=== PATIENT | male | born 1950 | race Hispanic/Latino ===

== ENCOUNTER 2018-07-10 08:51 | Inpatient (IN) | payer MEDICARE ==
[2018-07-10] MEDS ORDERED: Sodium Chloride 0.9% 1,000 ML IV STA (09:05)
--- NOTE | 2018-07-10 09:12 | ED PDOC ---
HPI: General Adult Time Seen by Provider: 07/10/18 08:58 Chief Complaint (Nursing): Abdominal Pain Chief Complaint (Provider): Jaundice and Loss of appetite History Per: Patient History/Exam Limitations: no limitations Onset/Duration Of Symptoms: Days (x 1 week ) Current Symptoms Are (Timing): Still Present Recently: Treated By A Physician Additional Complaint(s): 67 year old male with a history of diabetes and cancer of the tongue presents to the ED with worsening jaundice and decreased appetite over the last week. Patient noted dark colored urine with normal colored stool. Denies abdominal pain, vomiting, diarrhea and fever. PMD: Dr. Fabian Teran Past Medical History Reviewed: Historical Data, Nursing Documentation, Vital Signs - Medical History PMH: Diabetes, HTN, Hypercholesterolemia, Malignancy (tongue) Denies: Chronic Kidney Disease - Surgical History Surgical History: Tonsillectomy - Family History Family History: States: Unknown Family Hx - Home Medications Home Medications: Ambulatory Orders Medication Instructions Recorded Benazepril HCl [Lotensin] 10 mg PO DAILY 07/10/18 Fenofibrate Nanocrystallized 145 mg PO DAILY 07/10/18 [Fenofibrate] MetFORMIN [glucoPHAGE] 1,000 mg PO BID 07/10/18 Multivit-Min/FA/Vit K/Lycopene 1 tab PO DAILY 07/10/18 [One-A-Day Men's 50 Plus Tablet] QUEtiapine [Seroquel] 100 mg PO HS 07/10/18 Vitamin B Complex [Super B-50 1 cap PO DAILY 07/10/18 Complex] amLODIPine [Norvasc] 5 mg PO DAILY 07/10/18 - Allergies Allergies/Adverse Reactions: Allergies Allergy/AdvReac Type Severity Reaction Status Date / Time Penicillins Allergy ITCHING Verified 07/10/18 09:31 Review of Systems ROS Statement: Except As Marked, All Systems Reviewed And Found Negative Gastrointestinal: Negative for: Nausea, Vomiting, Abdominal Pain, Diarrhea, Melena, Hematochezia Genitourinary Male: Positive for: Other (dark colored urine ) Skin: Positive for: Jaundice (worsening over the last week) Physical Exam - Reviewed Nursing Documentation Reviewed: Yes Vital Signs Reviewed: Yes - Physical Exam Appears: Positive for: Non-toxic, No Acute Distress Head Exam: Positive for: ATRAUMATIC, NORMAL INSPECTION, NORMOCEPHALIC Skin: Positive for: Jaundice. Negative for: Rash Eye Exam: Positive for: PERRL, Scleral icterus Neck: Positive for: Normal, Painless ROM, Supple Cardiovascular/Chest: Positive for: Regular Rate, Rhythm. Negative for: Murmur Respiratory: Positive for: Normal Breath Sounds. Negative for: Respiratory Distress Gastrointestinal/Abdominal: Positive for: Other (questionable enlarged liver two finger breadths below right costal margin). Negative for: Tenderness, Distended Extremity: Positive for: Normal ROM. Negative for: Tenderness, Pedal Edema, Swelling Neurologic/Psych: Positive for: Alert, Oriented (x 3). Negative for: Motor/Sensory Deficits - Laboratory Results Result Diagrams: 07/10/18 09:35 07/10/18 09:35 - ECG ECG Rhythm: Positive for: Sinus Rhythm, Right Bundle Branch Block Rate: 88 Pulse Ox Interpretation: Normal - Radiology X-Ray: Read By Radiologist X-Ray Interpretation: No Acute Disease Medical Decision Making Medical Decision Makin:04 Impression: jaundice and decreased appetite Initial Plan: --EKG --CBC --CMP --Urine dip --Prothrombin time --CXR --NS IV --Abd & Pelvis CT 11:49 CT Abd & Pelvis COMPARISON: 08/11/2015. FINDINGS: LOWER THORAX: The visualized lungs are clear. LIVER: Mild hepatomegaly and fatty liver. Mild intrahepatic biliary ductal dilatation, new since the prior examination. GALLBLADDER AND BILE DUCTS: Well distended. No calcified gallstones, wall thickening or pericholecystic fluid. The common bile duct is normal in caliber. PANCREAS: Normal in size with homogeneous enhancement. No gross lesion or ductal dilatation. SPLEEN: Normal in size and appearance. ADRENALS: No discrete nodule. KIDNEYS AND URETERS: Normal in size with homogeneous enhancement. No hydronephrosis. 3 mm nonobstructing stone in the upper pole of the right kidney. VASCULATURE: No aortic aneurysm. There are aortic atherosclerotic calcifications and mural plaque. BOWEL: Evaluation of the bowel is limited in the absence of oral contrast. There are fluid filled normal caliber small bowel loops. There is fluid in the colon. There is scattered colonic diverticulosis. No CT evidence for acute diverticulitis. APPENDIX: The appendix is not distinctly identified however no inflammatory changes in the right lower quadrant. PERITONEUM: No free fluid. No free air. LYMPH NODES: There are small subcentimeter peripancreatic and retroperitoneal lymph nodes. BLADDER: Well distended and normal in appearance. REPRODUCTIVE: The uterus is normal in size. BONES: No acute fracture. Diffuse bone demineralization and multilevel degenerative changes in the spine. Old superior endplate compression deformity in the L3 vertebral body. OTHER FINDINGS: None. IMPRESSION: Fluid filled small bowel loops and fluid in the confluent may represent nonspecific enterocolitis. No evidence for bowel dilatation or obstruction. Mild dilatation of intrahepatic biliary radicles, new since the prior examination. No definite evidence for choledocholithiasis or periampullary mass. The common bile duct is normal in caliber. --------- -------- Scribe Attestation: Documented by Kristin Terrazas, acting as a scribe for Govind Perrin MD Provider Scribe Attestation: All medical record entries made by the Scribe were at my direction and personally dictated by me. I have reviewed the chart and agree that the record accurately reflects my personal performance of the history, physical exam, medical decision making, and the department course for this patient. I have also personally directed, reviewed, and agree with the discharge instructions and disposition. Disposition - Clinical Impression Clinical Impression: Jaundice, Dehydration - Patient ED Disposition Is Patient to be Admitted: Yes - Disposition Disposition Time: 12:24 Condition: FAIR Forms: [employer] (Lithuanian) - Pt Status Changed To: Hospital Disposition Of: Inpatient - Admit Certification Admit to Inpatient:: After my assessment, the patient will require hospitalization for at least two midnights. This is because of the severity of symptoms shown, intensity of services needed, and/or the medical risk in this patient being treated as an outpatient. - POA Present On Arrival: None
[2018-07-10 09:51] LABS: EOS % 0.8 % (0.0-4.0); HEMOGLOBIN 10.4 g/dL (12.0-18.0); LYMPH # 4.5 K/uL (1.0-4.3); LYMPH % 80.6 % (20.0-40.0); MEAN CELL VOLUME 103.3 fl (80.0-94.0); MEAN CORPUSCULAR HEMOGLOBIN 35.5 pg (27.0-31.0); MEAN CORPUSCULAR HGB CONC 34.3 g/dL (33.0-37.0); MEAN PLATELET VOLUME 8.3 fl (7.2-11.7); MONO # 0.4 K/uL (0.0-0.8); NEUT # 0.6 K/uL (1.8-7.0); NEUT % 11.6 % (50.0-75.0); NRBC % 0.1 % (0.0-0.0); PLATELET COUNT 423 K/uL (130-400); RBC 2.93 Mil/uL (4.40-5.90); RED CELL DISTRIBUTION WIDTH 14.1 % (11.5-14.5); WHITE BLOOD COUNT 5.5 K/uL (4.8-10.8)
[2018-07-10 09:59] LABS: INR 1.3; PROTHROMBIN TIME 14.4 Seconds (9.8-13.1)
[2018-07-10 10:11] LABS: ALBUMIN 4.8 g/dL (3.5-5.0); BLOOD UREA NITROGEN 16 mg/dl (9-20); CALCIUM 10.3 mg/dL (8.4-10.2); GFR NON-AFRICAN AMERICAN > 60
[2018-07-10 10:17] LABS: ALT/SGPT 86 U/L (21-72); AST/SGOT 137 U/L (17-59)
[2018-07-10] MEDS ORDERED: Iohexol 300 100 ML IJ ONE (10:25)
[2018-07-10] MEDS ORDERED: Sodium Chloride 0.9% 50 ML IV ONE ×2 (10:25→13:17)
--- NOTE | 2018-07-10 10:33 | RAD ---
Date of service: 07/10/2018 HISTORY: Shortness of breath COMPARISON: 04/26/2015 TECHNIQUE: Chest PA and lateral FINDINGS: LINES AND TUBES: None. LUNG AND PLEURA: The lungs are well inflated and clear. No pleural effusion or pneumothorax. HEART AND MEDIASTINUM: The heart is not enlarged. No aortic atherosclerotic calcification present. The hilar and mediastinal contours are within normal limits. SKELETAL STRUCTURES: The bony structures are within normal limits for the patient's age. VISUALIZED UPPER ABDOMEN: Normal. OTHER FINDINGS: None. IMPRESSION: No active pulmonary disease.
--- NOTE | 2018-07-10 11:52 | CT ---
Date of service: 07/10/2018 PROCEDURE: CT Abdomen and Pelvis with contrast HISTORY: Abdominal pain COMPARISON: 08/11/2015. TECHNIQUE: CT scan of the abdomen and pelvis was performed after administration of intravenous contrast. Oral contrast was not administered. Coronal and sagittal reformatted images were obtained. Contrast dose: Radiation dose: Total exam DLP = 562.82 mGy-cm. This CT exam was performed using one or more of the following dose reduction techniques: Automated exposure control, adjustment of the mA and/or kV according to patient size, and/or use of iterative reconstruction technique. FINDINGS: LOWER THORAX: The visualized lungs are clear. LIVER: Mild hepatomegaly and fatty liver. Mild intrahepatic biliary ductal dilatation, new since the prior examination. GALLBLADDER AND BILE DUCTS: Well distended. No calcified gallstones, wall thickening or pericholecystic fluid. The common bile duct is normal in caliber. PANCREAS: Normal in size with homogeneous enhancement. No gross lesion or ductal dilatation. SPLEEN: Normal in size and appearance. ADRENALS: No discrete nodule. KIDNEYS AND URETERS: Normal in size with homogeneous enhancement. No hydronephrosis. 3 mm nonobstructing stone in the upper pole of the right kidney. VASCULATURE: No aortic aneurysm. There are aortic atherosclerotic calcifications and mural plaque. BOWEL: Evaluation of the bowel is limited in the absence of oral contrast. There are fluid filled normal caliber small bowel loops. There is fluid in the colon. There is scattered colonic diverticulosis. No CT evidence for acute diverticulitis. APPENDIX: The appendix is not distinctly identified however no inflammatory changes in the right lower quadrant. PERITONEUM: No free fluid. No free air. LYMPH NODES: There are small subcentimeter peripancreatic and retroperitoneal lymph nodes. BLADDER: Well distended and normal in appearance. REPRODUCTIVE: The uterus is normal in size. BONES: No acute fracture. Diffuse bone demineralization and multilevel degenerative changes in the spine. Old superior endplate compression deformity in the L3 vertebral body. OTHER FINDINGS: None. IMPRESSION: Fluid filled small bowel loops and fluid in the confluent may represent nonspecific enterocolitis. No evidence for bowel dilatation or obstruction. Mild dilatation of intrahepatic biliary radicles, new since the prior examination. No definite evidence for choledocholithiasis or periampullary mass. The common bile duct is normal in caliber.
[2018-07-10 13:17] LABS: EOSINOPHIL 2 % (0-7); LYMPHOCYTE 33 % (20-50); MONOCYTE 13 % (0-10); NEUTROPHIL 52 % (42-75); PLATELET ESTIMATE INCREASED (NORMAL)
[2018-07-10] MEDS ORDERED: Gadodiamide 287 MG/ML VIAL (15ML) IV ONE (13:17)
[2018-07-10 13:19] LABS: HYPOCHROMIC SLIGHT; TARGET CELLS MODERATE
[2018-07-10 13:20] LABS: GIANT PLATELETS PRESENT; LARGE PLATELETS PRESENT
[2018-07-10 13:25] LABS: TOTAL CELLS COUNTED 100
[2018-07-10 13:44] LABS: BILIRUBIN,DIRECT 9.7 mg/ml (0.0-0.4)
[2018-07-10 13:50] LABS: BENZODIAZEPINES, UR NEGATIVE (NEGATIVE); OPIATES, UR NEGATIVE (NEGATIVE); PHENCYCLIDINE, UR NEGATIVE (NEGATIVE)
[2018-07-10 13:53] LABS: URINE BILIRUBIN NEGATIVE (NEGATIVE); URINE BLOOD NEGATIVE (NEGATIVE); URINE GLUCOSE (UA) NEG (Normal); URINE LEUKOCYTE ESTERASE NEG Leu/uL (Negative); URINE PROTEIN NEGATIVE (NEGATIVE); URINE UROBILINOGEN 0.2-1.0 mg/dL (0.2-1.0)
[2018-07-10 13:54] LABS: URINE COLOR YELLOW (YELLOW)
[2018-07-10 13:55] LABS: URINE CLARITY SLIGHT-CLOUDY (Clear)
[2018-07-10 14:01] LABS: BARBITURATES, UR NEGATIVE (NEGATIVE)
--- NOTE | 2018-07-10 14:15 | CP.PCM.HP ---
<Reba Miles - Last Filed: 07/10/18 16:55> History of Present Illness - History of Present Illness History of Present Illness: 67 yo M with PMH hypertension, diabetes, oral/tongue cancer, hyperlipidemia, alcohol abuse admitted due to marked jaundice and elevation in bilirubin. Pt was seen by his PMD Dr. Teran on Saturday of this week (2 days ago), and as per patient, was noted to be yellow in color. Pt states that prior to his PMD pointing it out to him, he did not notice change in his skin color. Pt also states he was seen by his ENT 1 week prior to his apt with PMD, and was not told that he looked yellow. Currently, he admits to having low appetite, but denies chest pain, abdominal pain/fullness or other discomfort. Pt admits to drinking 3-4 times a week for many years, and daily for the past 4- 6 months. He drinks pint of [employer] whiskey and a "couple of beers" night ly. He is a past smoker, smoked since age 21, about 1ppd for most of those years, and up to 2 ppd for the last 2 years of smoking. He quit on December 08, 2016, when he was diagnosed with tongue cancer, and underwent local resection of the lesion in March 2017. Med hx: hypertension, diabetes, tongue cancer, alcohol abuse Surg hx: tongue lesion resection 03/2017, left elbow surgery for trapped nerve, tonsillectomy in childhood Social hx: former heavy smoker (1-2 ppd) for 40+ years since age 21, quit 1.5 yrs ago; chronic alcohol use, pint of whiskey and few beers 3-4x a week for many years, and daily for past 4-6 months Fam hx: father of lung ca (smoked fo 40 yrs, quit age 61, age 88) Allergies: penicillin Med: med rec reviewed, home meds: amlodipine, benazepril, fenofibrate, me tformin, seroquel, multivitamin, vitamin B complex; of note, as per pt he was taking atorvastatin until about 2 months ago when he was switched to fenofibrate ROS: 10+ point ROS reviewed, negative except for decreased appetite, 30 lb weight loss since surgery, yellowing of skin. In ED: Vitals: Afebrile 97.9, BP 146/81, HR 91, O2 sat on room air 99 Labs: CMP: total bili 10.7, direct bili 9.7; transaminitis AST/ALT 137/86; CBC no leukocytosis, macrocytic anemia Hgb 104, MCV 103.3, elevated platelets 423. Abd CT: nonspecific enterocolitis; no evidence of obstruction. Mild dilatation of intrahepatic biliary radicles, new since prior examination. No definite evidence for choledocholithiasis or periampullary mass. Common bile duct normal in caliber. MRCP ordered Present on Admission - Present on Admission Any Indicators Present on Admission: No Review of Systems - Review of Systems All systems: reviewed and no additional remarkable complaints except (as per HPI) Past Patient History - Infectious Disease Hx of Infectious Diseases: None - Past Social History Smoking Status: Former Smoker Alcohol: > 2 Drinks/Day - CARDIAC Hx Cardiac Disorders: Yes Hx Hypercholesterolemia: Yes Hx Hypertension: Yes - PULMONARY Hx Respiratory Disorders: No - NEUROLOGICAL Hx Neurological Disorder: No - HEENT Hx HEENT Problems: No - RENAL Hx Chronic Kidney Disease: No - ENDOCRINE/METABOLIC Hx Endocrine Disorders: Yes Hx Diabetes Mellitus Type 2: Yes - HEMATOLOGICAL/ONCOLOGICAL Hx Blood Disorders: No - INTEGUMENTARY Hx Dermatological Problems: No - MUSCULOSKELETAL/RHEUMATOLOGICAL Hx Musculoskeletal Disorders: No - GASTROINTESTINAL Hx Gastrointestinal Disorders: No - GENITOURINARY/GYNECOLOGICAL Hx Genitourinary Disorders: No - SURGICAL HISTORY Hx Surgeries: Yes Hx Tonsillectomy: Yes Other/Comment: tongue cancer lesion resection, left upper extremity/elbow nerve entrapment release - ANESTHESIA Hx Anesthesia: No Meds Allergies/Adverse Reactions: Allergies Allergy/AdvReac Type Severity Reaction Status Date / Time Penicillins Allergy ITCHING Verified 07/10/18 09:31 Physical Exam - Constitutional Appears: No Acute Distress, Other (jaundiced) - Head Exam Head Exam: ATRAUMATIC, NORMOCEPHALIC. absent: NORMAL INSPECTION Additional comments: jaudiced skin and sclera - Eye Exam Eye Exam: EOMI, Scleral icterus. absent: Normal appearance - ENT Exam ENT Exam: Mucous Membranes Moist Additional comments: tongue uneven, s/p resection of cancerous lesion in 2017 - Neck Exam Neck exam: Positive for: Full Rom - Respiratory Exam Respiratory Exam: Clear to Auscultation Bilateral, NORMAL BREATHING PATTERN - Cardiovascular Exam Cardiovascular Exam: REGULAR RHYTHM, +S1, +S2 - GI/Abdominal Exam GI & Abdominal Exam: Soft. absent: Tenderness Additional comments: markedly yellow skin - Extremities Exam Extremities exam: Negative for: calf tenderness Additional comments: no calf swelling slight yellowing to skin in extremities - Neurological Exam Neurological exam: Alert, Oriented x3 - Skin Skin Exam: Dry Additional comments: marked jaundice, most concentrated in face, neck and trunk, less marked in extremities Results - Vital Signs Recent Vital Signs: Last Vital Signs Temp 97.9 F 07/10/18 09:10 Pulse 88 07/10/18 12:24 Resp BP 146/81 07/10/18 09:10 Pulse Ox 99 07/10/18 09:10 - Labs Result Diagrams: 07/10/18 09:35 07/10/18 09:35 Labs: Laboratory Results - last 24 hr 07/10/18 07/10/18 07/10/18 09:35 09:35 09:35 WBC 5.5 RBC 2.93 L Hgb 10.4 L D Hct 30.2 L MCV 103.3 H MCH 35.5 H MCHC 34.3 RDW 14.1 Plt Count 423 H D MPV 8.3 Neut % (Auto) 11.6 L Lymph % (Auto) 80.6 H [place] % (Auto) 7.0 Eos % (Auto) 0.8 Baso % (Auto) 0.0 Neut # (Auto) 0.6 L Lymph # (Auto) 4.5 H [place] # (Auto) 0.4 Eos # (Auto) 0.0 Baso # (Auto) 0.0 Neutrophils % (Manual) 52 Lymphocytes % (Manual) 33 Monocytes % (Manual) 13 H Eosinophils % (Manual) 2 Platelet Estimate Increased H Large Platelets Present Giant Platelets Present Hypochromasia (manual) Slight Macrocytosis (manual) Slight Target Cells Moderate PT 14.4 H INR 1.3 Sodium 132 Potassium 4.8 Chloride 98 Carbon Dioxide 18 L Anion Gap 21 H BUN 16 Creatinine 1.2 Est GFR ( Amer) > 60 Est GFR (Non-Af Amer) > 60 Random Glucose 89 Calcium 10.3 H Total Bilirubin 10.7 H AST 137 H ALT 86 H D Alkaline Phosphatase 102 Total Protein 9.5 H Albumin 4.8 Globulin 4.7 H Albumin/Globulin Ratio 1.0 Assessment & Plan - Assessment and Plan (Free Text) Assessment: 67 yo M with hx HTN, DM2, oral cancer s/p resection of tongue lesion, alcohol abuse admitted due to marked jaundice and elevation in bilirubin. Plan: Jaundice, Hyperbilirubinemia, Transaminitis - Total bili - Hepatitis panel - GI consult - Dr. Stewart, pending recs - MRCP - CMP/CBC in am Anemia - Macrocytic, MCV 103 - Check B12, folate Alcohol Abuse - [facility] protocol - Banana bag Diabetes Mellitus, Type 2 - Appears well controlled - Hold home meds due to possible hepatotoxicity - Accucheks and insulin coverage scale Hypertension - Hold home meds due to possible hepatotoxicity - Start hydralazine Dyslipidemia - Hold fenofibrate due to possible hepatotoxicity Diet - Heart Healthy Prophylactic measures - GI: protonix daily - DVT: SCD for now <Eduard Jalloh D - Last Filed: 07/11/18 10:49> Results - Vital Signs Recent Vital Signs: Last Vital Signs Temp 98.0 F 07/11/18 08:17 Pulse 58 L 07/11/18 08:38 Resp 19 07/11/18 08:17 BP 146/87 07/11/18 08:38 Pulse Ox 97 07/11/18 08:17 - Labs Result Diagrams: 07/11/18 06:25 07/11/18 06:25 Labs: Laboratory Results - last 24 hr 07/10/18 07/10/18 07/10/18 09:35 13:20 13:20 WBC RBC Hgb Hct MCV MCH MCHC RDW Plt Count MPV Neut % (Auto) Lymph % (Auto) [place] % (Auto) Eos % (Auto) Baso % (Auto) Neut # (Auto) Lymph # (Auto) [place] # (Auto) Eos # (Auto) Baso # (Auto) Neutrophils % (Manual) 52 Lymphocytes % (Manual) 33 Monocytes % (Manual) 13 H Eosinophils % (Manual) 2 Platelet Estimate Increased H Large Platelets Present Giant Platelets Present Hypochromasia (manual) Slight Macrocytosis (manual) Slight Target Cells Moderate Sodium Potassium Chloride Carbon Dioxide Anion Gap BUN Creatinine Est GFR ( Amer) Est GFR (Non-Af Amer) POC Glucose (mg/dL) Random Glucose Calcium Total Bilirubin 10.7 H Direct Bilirubin 9.7 H AST ALT Alkaline Phosphatase Total Protein Albumin Globulin Albumin/Globulin Ratio Vitamin B12 Urine Color Urine Clarity Urine pH Ur Specific [place] Urine Protein Urine Glucose (UA) Urine Ketones Urine Blood Urine Nitrate Urine Bilirubin Urine Urobilinogen Ur Leukocyte Esterase Urine RBC (Auto) Urine Microscopic WBC Urine Opiates Screen Negative Urine Methadone Screen Negative Ur Barbiturates Screen Negative Ur Phencyclidine Scrn Negative Ur Amphetamines Screen Negative U Benzodiazepines Scrn Negative U Oth Cocaine Metabols Negative U Cannabinoids Screen Negative Alcohol, Quantitative < 10 07/10/18 07/10/18 07/10/18 13:20 16:53 17:40 WBC RBC Hgb Hct MCV MCH MCHC RDW Plt Count MPV Neut % (Auto) Lymph % (Auto) [place] % (Auto) Eos % (Auto) Baso % (Auto) Neut # (Auto) Lymph # (Auto) [place] # (Auto) Eos # (Auto) Baso # (Auto) Neutrophils % (Manual) Lymphocytes % (Manual) Monocytes % (Manual) Eosinophils % (Manual) Platelet Estimate Large Platelets Giant Platelets Hypochromasia (manual) Macrocytosis (manual) Target Cells Sodium Potassium Chloride Carbon Dioxide Anion Gap BUN Creatinine Est GFR ( Amer) Est GFR (Non-Af Amer) POC Glucose (mg/dL) 97 Random Glucose Calcium Total Bilirubin Direct Bilirubin AST ALT Alkaline Phosphatase Total Protein Albumin Globulin Albumin/Globulin Ratio Vitamin B12 419 Urine Color Yellow Urine Clarity Slight-cloudy Urine pH 7.0 Ur Specific [place] 1.014 Urine Protein Negative Urine Glucose (UA) Neg Urine Ketones Negative Urine Blood Negative Urine Nitrate Negative Urine Bilirubin Negative Urine Urobilinogen 0.2-1.0 Ur Leukocyte Esterase Neg Urine RBC (Auto) 5 H Urine Microscopic WBC 2 Urine Opiates Screen Urine Methadone Screen Ur Barbiturates Screen Ur Phencyclidine Scrn Ur Amphetamines Screen U Benzodiazepines Scrn U Oth Cocaine Metabols U Cannabinoids Screen Alcohol, Quantitative 07/10/18 07/11/18 07/11/18 21:15 04:52 06:25 WBC 4.7 L RBC 2.77 L Hgb 9.8 L Hct 28.7 L MCV 103.5 H MCH 35.3 H MCHC 34.1 RDW 14.4 Plt Count 354 MPV 7.5 Neut % (Auto) 17.0 L Lymph % (Auto) 65.1 H [place] % (Auto) 17.0 H Eos % (Auto) 0.9 Baso % (Auto) 0.0 Neut # (Auto) 0.8 L Lymph # (Auto) 3.1 [place] # (Auto) 0.8 Eos # (Auto) 0.0 Baso # (Auto) 0.0 Neutrophils % (Manual) Lymphocytes % (Manual) Monocytes % (Manual) Eosinophils % (Manual) Platelet Estimate Large Platelets Giant Platelets Hypochromasia (manual) Macrocytosis (manual) Target Cells Sodium Potassium Chloride Carbon Dioxide Anion Gap BUN Creatinine Est GFR ( Amer) Est GFR (Non-Af Amer) POC Glucose (mg/dL) 184 H 105 Random Glucose Calcium Total Bilirubin Direct Bilirubin AST ALT Alkaline Phosphatase Total Protein Albumin Globulin Albumin/Globulin Ratio Vitamin B12 Urine Color Urine Clarity Urine pH Ur Specific [place] Urine Protein Urine Glucose (UA) Urine Ketones Urine Blood Urine Nitrate Urine Bilirubin Urine Urobilinogen Ur Leukocyte Esterase Urine RBC (Auto) Urine Microscopic WBC Urine Opiates Screen Urine Methadone Screen Ur Barbiturates Screen Ur Phencyclidine Scrn Ur Amphetamines Screen U Benzodiazepines Scrn U Oth Cocaine Metabols U Cannabinoids Screen Alcohol, Quantitative 07/11/18 06:25 WBC RBC Hgb Hct MCV MCH MCHC RDW Plt Count MPV Neut % (Auto) Lymph % (Auto) [place] % (Auto) Eos % (Auto) Baso % (Auto) Neut # (Auto) Lymph # (Auto) [place] # (Auto) Eos # (Auto) Baso # (Auto) Neutrophils % (Manual) Lymphocytes % (Manual) Monocytes % (Manual) Eosinophils % (Manual) Platelet Estimate Large Platelets Giant Platelets Hypochromasia (manual) Macrocytosis (manual) Target Cells Sodium 134 Potassium 4.2 Chloride 102 Carbon Dioxide 20 L Anion Gap 16 BUN 13 Creatinine 1.0 Est GFR ( Amer) > 60 Est GFR (Non-Af Amer) > 60 POC Glucose (mg/dL) Random Glucose 104 Calcium 9.9 Total Bilirubin 10.6 H Direct Bilirubin 9.3 H AST 120 H ALT 77 H Alkaline Phosphatase 84 Total Protein 8.3 H Albumin 4.3 Globulin 4.0 H Albumin/Globulin Ratio 1.1 Vitamin B12 Urine Color Urine Clarity Urine pH Ur Specific [place] Urine Protein Urine Glucose (UA) Urine Ketones Urine Blood Urine Nitrate Urine Bilirubin Urine Urobilinogen Ur Leukocyte Esterase Urine RBC (Auto) Urine Microscopic WBC Urine Opiates Screen Urine Methadone Screen Ur Barbiturates Screen Ur Phencyclidine Scrn Ur Amphetamines Screen U Benzodiazepines Scrn U Oth Cocaine Metabols U Cannabinoids Screen Alcohol, Quantitative Attending/Attestation - Attestation I have personally seen and examined this patient.: Yes I have fully participated in the care of the patient.: Yes I have reviewed all pertinent clinical information: Yes Notes (Text): 07/11/18 10:49 Patient seen and examined with resident. Case discussed and agreed with assessment and plan of management.
--- NOTE | 2018-07-10 15:33 | MRI ---
MRI abdomen without/with IV contrast MRCP Indication: Hyperbilirubinemia Technique: Multiplanar, multi sequence magnetic resonance images of the abdomen were obtained without and with the administration of intravenous gadolinium using a multi phase abdomen protocol. Rotating maximum intensity projection images of the biliary system were generated. A total of 1106 images submitted for review Comparison: CT abdomen and pelvis with IV contrast Findings: The gallbladder appears unremarkable. Intrahepatic biliary ductal dilatation. The common bile duct appears within normal limits in caliber and tapers distally. The pancreatic duct appears within normal limits of caliber. No filling defects are seen in the common bile duct or pancreatic duct. 5 mm pancreatic body and 3 mm pancreatic tail punctate T2 hyperintense foci. No focal hepatic mass appreciated. The spleen and adrenal glands appear unremarkable. The kidneys enhance symmetrically. No hydronephrosis or obstructing calculus identified. 13 mm clair hepatis lymph node Limited views of the inferior thorax appear unremarkable. Impression: Mild to moderate intrahepatic biliary ductal dilatation. This finding is new since 08/11/15. 13 mm lymph node at the clair hepatis. Additional prominent sub cm mesenteric and retroperitoneal lymph nodes of uncertain significance. Correlate clinically. Sub cm pancreatic body and tail T2 hyperintense foci, likely tiny cysts.
[2018-07-10] MEDS: Insulin Lispro (humaLOG) 100 Units/ml Inj SC SCH ×2 (16:54→22:00)
[2018-07-10] MEDS: Multivitamin (MVI) 10 ML, Thiamine 100 MG, Folic Acid 1 MG in Dextrose 5%/0.45% NS 1,00... IV ONE ×2 (18:30→21:06)
--- NOTE | 2018-07-10 19:34 | CARD ---
APPROVED REPORT Date of service: 07/10/2018 EKG Measurement Heart [id number] <Conclusion> Normal sinus rhythm Possible Left atrial enlargement Right bundle branch block Abnormal ECG
[2018-07-11 06:39] LABS: EOS % 0.9 % (0.0-4.0); HEMOGLOBIN 9.8 g/dL (12.0-18.0); LYMPH # 3.1 K/uL (1.0-4.3); LYMPH % 65.1 % (20.0-40.0); MEAN CELL VOLUME 103.5 fl (80.0-94.0); MEAN CORPUSCULAR HEMOGLOBIN 35.3 pg (27.0-31.0); MEAN CORPUSCULAR HGB CONC 34.1 g/dL (33.0-37.0); MEAN PLATELET VOLUME 7.5 fl (7.2-11.7); MONO # 0.8 K/uL (0.0-0.8); NEUT # 0.8 K/uL (1.8-7.0); NRBC % 0.1 % (0.0-0.0); RBC 2.77 Mil/uL (4.40-5.90); RED CELL DISTRIBUTION WIDTH 14.4 % (11.5-14.5); WHITE BLOOD COUNT 4.7 K/uL (4.8-10.8)
[2018-07-11 06:50] LABS: BLOOD UREA NITROGEN 13 mg/dl (9-20); CALCIUM 9.9 mg/dL (8.4-10.2); GFR NON-AFRICAN AMERICAN > 60
[2018-07-11] MEDS: Insulin Lispro (humaLOG) 100 Units/ml Inj SC SCH ×2 (07:39→12:14)
[2018-07-11 08:36] LABS: ALB/GLOB RATIO 1.1 (1.0-2.1); ALBUMIN 4.3 g/dL (3.5-5.0); ALT/SGPT 77 U/L (21-72); AST/SGOT 120 U/L (17-59); BILIRUBIN,DIRECT 9.3 mg/ml (0.0-0.4)
[2018-07-11] MEDS ORDERED: Pantoprazole 40 mg EC Tab PO SCH (09:00)
--- NOTE | 2018-07-11 11:02 | CP.PCM.PN ---
<Enrico Dean - Last Filed: 07/11/18 14:38> Subjective - Date & Time of Evaluation Date of Evaluation: 07/11/18 Time of Evaluation: 07:10 - Subjective Subjective: Patient is seen and examined at bedside. No acute event overnight. Patient state he could not sleep yesterday due to noise. otherwise patient had no complain, he eat, had BM, void, he denies any pain. Patient denies Chest pain, sob, abdominal pain, diarrhea, constipation, dysuria or polyuria. Objective - Vital Signs/Intake and Output Vital Signs (last 24 hours): Temp Pulse Resp BP Pulse Ox 98.0 F 58 L 19 146/87 97 07/11/18 08:17 07/11/18 08:38 07/11/18 08:17 07/11/18 08:38 07/11/18 08:17 - Medications Medications: Current Medications Docusate Sodium (Colace) 100 mg PO BID [facility] Last Admin: 07/11/18 08:41 Dose: Not Given Hydralazine HCl (Apresoline) 10 mg PO TID [facility] Last Admin: 07/11/18 08:38 Dose: 10 mg Insulin Human Lispro (Humalog) 0 units SC ACHS [facility]; Protocol Last Admin: 07/11/18 07:39 Dose: Not Given Pantoprazole Sodium (Protonix Ec Tab) 40 mg PO DAILY [facility] Last Admin: 07/11/18 08:41 Dose: 40 mg - Labs Labs: 07/11/18 06:25 07/11/18 06:25 PT 14.4 Seconds (9.8-13.1) H 07/10/18 09:35 INR 1.3 07/10/18 09:35 - Constitutional Appears: Well, Non-toxic, No Acute Distress - Head Exam Head Exam: ATRAUMATIC, NORMAL INSPECTION, NORMOCEPHALIC - Eye Exam Eye Exam: EOMI, Normal appearance, PERRL, Scleral icterus Pupil Exam: NORMAL ACCOMODATION, PERRL - ENT Exam ENT Exam: Mucous Membranes Moist, Normal Exam - Neck Exam Neck Exam: Full ROM, Normal Inspection - Respiratory Exam Respiratory Exam: Clear to Ausculation Bilateral, NORMAL BREATHING PATTERN - Cardiovascular Exam Cardiovascular Exam: REGULAR RHYTHM, +S1, +S2 - GI/Abdominal Exam GI & Abdominal Exam: Soft, Normal Bowel Sounds - Extremities Exam Extremities Exam: Full ROM, Normal Capillary Refill, Normal Inspection - Back Exam Back Exam: NORMAL INSPECTION - Neurological Exam Neurological Exam: Alert, Awake, Oriented x3 - Psychiatric Exam Psychiatric exam: Normal Affect, Normal Mood - Skin Skin Exam: Dry, Warm Additional comments: Jaundice and sclera icterus noted. 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 Jaundice, Hyperbilirubinemia, Transaminitis - Total bili 10.7->10.6 -Direct bili 9.7-? 9.3 - ASt/ALT: 120/77 - MRCP: MILD to moderate intrahepatic biliary ductal dilation. 13 mm lymph node at the portal hepatis. Additional prominent sub cm mesenteric and retroperitonea l lymph nodes of uncertain significance. -Hepatitis panel negative for Hep A, B and C - GI consult - Dr. Stewart: Alcohol vs Medication induced. MRI with contrast, consider Liver bx if not resolved. F/U MRI with Contrast Anemia - Macrocytic, MCV 103 - Folate: pending -B12 419 Alcohol Abuse - [facility] protocol - Banana bag Diabetes Mellitus, Type 2 - Well controlled - Hold home meds due to possible hepatotoxicity - Accucheks and insulin coverage scale Hypertension - Hold home meds due to possible hepatotoxicity - Continue hydralazine Dyslipidemia - Hold fenofibrate due to possible hepatotoxicity Diet - Heart Healthy Prophylactic measures - GI: protonix daily - DVT: SCD for now <Lisa Riley - Last Filed: 07/12/18 10:00> Objective - Vital Signs/Intake and Output Vital Signs (last 24 hours): Temp Pulse Resp BP Pulse Ox 98.5 F 52 L 18 154/78 H 100 07/11/18 16:09 07/11/18 16:09 07/11/18 16:09 07/11/18 16:09 07/11/18 16:09 - Labs Labs: 07/11/18 06:25 07/11/18 06:25 PT 14.4 Seconds (9.8-13.1) H 07/10/18 09:35 INR 1.3 07/10/18 09:35 Attending/Attestation - Attestation I have personally seen and examined this patient.: Yes I have fully participated in the care of the patient.: Yes I have reviewed all pertinent clinical information, including history, physical exam and plan: Yes Notes (Text): 07/12/18 10:00 Seen, examined, and discussed with resident. Agree with findings and plan as above.
[2018-07-11 12:09] LABS: HEPATITIS B SURFACE AG Negative (NEGATIVE)
[2018-07-11 12:15] LABS: HEPATITIS A IGM NEGATIVE (NEGATIVE); HEPATITIS B CORE AB NEGATIVE (NEGATIVE)
--- NOTE | 2018-07-11 12:17 | CP.PCM.PN ---
Subjective - Date & Time of Evaluation Date of Evaluation: 07/11/18 Time of Evaluation: 12:16 - Subjective Subjective: no overnight events Objective - Vital Signs/Intake and Output Vital Signs (last 24 hours): Temp Pulse Resp BP Pulse Ox 98.0 F 58 L 19 146/87 97 07/11/18 08:17 07/11/18 08:38 07/11/18 08:17 07/11/18 08:38 07/11/18 08:17 - Medications Medications: Current Medications Docusate Sodium (Colace) 100 mg PO BID [facility] Last Admin: 07/11/18 08:41 Dose: Not Given Hydralazine HCl (Apresoline) 10 mg PO TID [facility] Last Admin: 07/11/18 08:38 Dose: 10 mg Insulin Human Lispro (Humalog) 0 units SC ACHS [facility]; Protocol Last Admin: 07/11/18 07:39 Dose: Not Given Pantoprazole Sodium (Protonix Ec Tab) 40 mg PO DAILY [facility] Last Admin: 07/11/18 08:41 Dose: 40 mg - Labs Labs: 07/11/18 06:25 07/11/18 06:25 PT 14.4 Seconds (9.8-13.1) H 07/10/18 09:35 INR 1.3 07/10/18 09:35 - Eye Exam Eye Exam: Scleral icterus - Neck Exam Neck Exam: Normal Inspection - Respiratory Exam Respiratory Exam: NORMAL BREATHING PATTERN - Cardiovascular Exam Cardiovascular Exam: REGULAR RHYTHM - GI/Abdominal Exam GI & Abdominal Exam: Soft, Normal Bowel Sounds Assessment and Plan - Assessment and Plan (Free Text) Assessment: 67 yo male with icterus contrast MRI pending etiology etoh versus med induced (fenofibrate) consider liver bx if no improvement
[2018-07-11 12:27] LABS: HEPATITIS C ANTIBODY NEGATIVE (NEGATIVE)
[2018-07-11 12:44] LABS: FOLATE > 20.0 ng/mL
[2018-07-11 16:10] VITALS: BP 154/78; PULSE 52; RESP 18; TEMP 98.5; O2SAT 100
--- NOTE | 2018-07-11 18:18 | CP.PCM.DIS ---
Provider - Provider Date of Admission: 07/10/18 12:22 Attending physician: Eduard Jalloh MD Time Spent in preparation of Discharge (in minutes): 20 Diagnosis - Discharge Diagnosis (1) Abdominal pain Status: Acute Hospital Course - Lab Results Lab Results: Most Recent Lab Values WBC 4.7 K/uL (4.8-10.8) L 07/11/18 06:25 RBC 2.77 Mil/uL (4.40-5.90) L 07/11/18 06:25 Hgb 9.8 g/dL (12.0-18.0) L 07/11/18 06:25 Hct 28.7 % (35.0-51.0) L 07/11/18 06:25 MCV 103.5 fl (80.0-94.0) H 07/11/18 06:25 MCH 35.3 pg (27.0-31.0) H 07/11/18 06:25 MCHC 34.1 g/dL (33.0-37.0) 07/11/18 06:25 RDW 14.4 % (11.5-14.5) 07/11/18 06:25 Plt Count 354 K/uL (130-400) 07/11/18 06:25 MPV 7.5 fl (7.2-11.7) 07/11/18 06:25 Neut % (Auto) 17.0 % (50.0-75.0) L 07/11/18 06:25 Lymph % (Auto) 65.1 % (20.0-40.0) H 07/11/18 06:25 [place] % (Auto) 17.0 % (0.0-10.0) H 07/11/18 06:25 Eos % (Auto) 0.9 % (0.0-4.0) 07/11/18 06:25 Baso % (Auto) 0.0 % (0.0-2.0) 07/11/18 06:25 Neut # (Auto) 0.8 K/uL (1.8-7.0) L 07/11/18 06:25 Lymph # (Auto) 3.1 K/uL (1.0-4.3) 07/11/18 06:25 [place] # (Auto) 0.8 K/uL (0.0-0.8) 07/11/18 06:25 Eos # (Auto) 0.0 K/uL (0.0-0.7) 07/11/18 06:25 Baso # (Auto) 0.0 K/uL (0.0-0.2) 07/11/18 06:25 Neutrophils % (Manual) 52 % (42-75) 07/10/18 09:35 Lymphocytes % (Manual) 33 % (20-50) 07/10/18 09:35 Monocytes % (Manual) 13 % (0-10) H 07/10/18 09:35 Eosinophils % (Manual) 2 % (0-7) 07/10/18 09:35 Platelet Estimate Increased (NORMAL) H 07/10/18 09:35 Large Platelets Present 07/10/18 09:35 Giant Platelets Present 07/10/18 09:35 Hypochromasia (manual) Slight 07/10/18 09:35 Macrocytosis (manual) Slight 07/10/18 09:35 Target Cells Moderate 07/10/18 09:35 PT 14.4 Seconds (9.8-13.1) H 07/10/18 09:35 INR 1.3 07/10/18 09:35 Sodium 134 mmol/l (132-148) 07/11/18 06:25 Potassium 4.2 MMOL/L (3.6-5.0) 07/11/18 06:25 Chloride 102 mmol/L (98-107) 07/11/18 06:25 Carbon Dioxide 20 mmol/L (22-30) L 07/11/18 06:25 Anion Gap 16 (10-20) 07/11/18 06:25 BUN 13 mg/dl (9-20) 07/11/18 06:25 Creatinine 1.0 mg/dl (0.8-1.5) 07/11/18 06:25 Est GFR ( Amer) > 60 07/11/18 06:25 Est GFR (Non-Af Amer) > 60 07/11/18 06:25 POC Glucose (mg/dL) 109 mg/dL (65-110) 07/11/18 15:40 Random Glucose 104 mg/dL (75-110) 07/11/18 06:25 Calcium 9.9 mg/dL (8.4-10.2) 07/11/18 06:25 Total Bilirubin 10.6 mg/dl (0.2-1.3) H 07/11/18 06:25 Direct Bilirubin 9.3 mg/ml (0.0-0.4) H 07/11/18 06:25 AST 120 U/L (17-59) H 07/11/18 06:25 ALT 77 U/L (21-72) H 07/11/18 06:25 Alkaline Phosphatase 84 U/L (38-126) 07/11/18 06:25 Total Protein 8.3 G/DL (6.3-8.2) H 07/11/18 06:25 Albumin 4.3 g/dL (3.5-5.0) 07/11/18 06:25 Globulin 4.0 gm/dL (2.2-3.9) H 07/11/18 06:25 Albumin/Globulin Ratio 1.1 (1.0-2.1) 07/11/18 06:25 Vitamin B12 419 pg/mL (239-931) 07/10/18 17:40 Folate > 20.0 ng/mL 07/10/18 17:40 Urine Color Yellow (YELLOW) 07/10/18 13:20 Urine Clarity Slight-cloudy (Clear) 07/10/18 13:20 Urine pH 7.0 (5.0-8.0) 07/10/18 13:20 Ur Specific [place] 1.014 (1.003-1.030) 07/10/18 13:20 Urine Protein Negative mg/dL (NEGATIVE) 07/10/18 13:20 Urine Glucose (UA) Neg mg/dL (Normal) 07/10/18 13:20 Urine Ketones Negative mg/dL (NEGATIVE) 07/10/18 13:20 Urine Blood Negative (NEGATIVE) 07/10/18 13:20 Urine Nitrate Negative (NEGATIVE) 07/10/18 13:20 Urine Bilirubin Negative (NEGATIVE) 07/10/18 13:20 Urine Urobilinogen 0.2-1.0 mg/dL (0.2-1.0) 07/10/18 13:20 Ur Leukocyte Esterase Neg [place]/uL (Negative) 07/10/18 13:20 Urine RBC (Auto) 5 /hpf (0-3) H 07/10/18 13:20 Urine Microscopic WBC 2 /hpf (0-5) 07/10/18 13:20 Urine Opiates Screen Negative (NEGATIVE) 07/10/18 13:20 Urine Methadone Screen Negative (NEGATIVE) 07/10/18 13:20 Ur Barbiturates Screen Negative (NEGATIVE) 07/10/18 13:20 Ur Phencyclidine Scrn Negative (NEGATIVE) 07/10/18 13:20 Ur Amphetamines Screen Negative (NEGATIVE) 07/10/18 13:20 U Benzodiazepines Scrn Negative (NEGATIVE) 07/10/18 13:20 U Oth Cocaine Metabols Negative (NEGATIVE) 07/10/18 13:20 U Cannabinoids Screen Negative (NEGATIVE) 07/10/18 13:20 Alcohol, Quantitative < 10 mg/dl (0-10) 07/10/18 13:20 Hepatitis A IgM Ab Negative (NEGATIVE) 07/10/18 13:20 Hep Bs Antigen Negative (NEGATIVE) 07/10/18 13:20 Hep B Core IgM Ab Negative (NEGATIVE) 07/10/18 13:20 Hepatitis C Antibody Negative (NEGATIVE) 07/10/18 13:20 - Hospital Course Hospital Course: this is a 67 yo male with PMH of HTN, DM2, 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 Upon arrival to ED patient was afebrile, BP 146/81, HR 91, O2 sat on room air 99. CMP: total bili 10.7, direct bili 9.7; transaminitis AST/ALT 137/86; CBC no leukocytosis, macrocytic anemia Hgb 104, MCV 103.3, elevated platelets 423. CTscan showed enterocolitis; but no evidence of obstruction. Mild dilatation of intrahepatic biliary radicles. Patient was admitted to floor for further evaluation. In floor patient received Banana bag, Most of home medica tion were held due to hepatotoxic, DM was controlled with Humulin, HTN was controlled with Hydralazine. MRCP and Hepatic panel ordered. Hepatic panel was negative for Hep A, B and C. MRCP was positive for dilation of intrahepatic biliary duct and questionable retroperitoneal lymph nodes of uncertain significance. GI was consulted, and recommended MRI with contrast and possible Liver bx if not resolved. on @ 5:50 patient decied to leave AMA, and there was no possible further evaluation or treatment. Patient was advised to stay for further management but still denied and wanted to be discharged. Abd CT: nonspecific enterocolitis; no evidence of obstruction. Mild dilatation of intrahepatic biliary radicles, new since prior examination. No definite evidence for choledocholithiasis or periampullary mass. Common bile duct normal in caliber. MRCP: MILD to moderate intrahepatic biliary ductal dilation. 13 mm lymph node at the portal hepatis. Additional prominent sub cm mesenteric and retroperitoneal lymph nodes of uncertain significance. Patient was advised that leaving AMA will not guarantee full recovery, full evaluation was not done, and treatment could not be completed. Patient was advised to see PCP as soon as possible, and if develop worsening symptoms, severe pain, or symptoms don't resolve to go to ER. Discharge Exam - Head Exam Head Exam: ATRAUMATIC, NORMAL INSPECTION, NORMOCEPHALIC Additional comments: Physical exam was unable to be done due patient AMA. Physical exam was documented in morning in progress note. Discharge Plan - Follow Up Plan Condition: FAIR Disposition: AGAINST MEDICAL ADVICE Instructions: Jaundice, Adult (DC), Dehydration (DC), Acute Abdominal Pain (DC), Acute Abdominal Pain (GEN) Referrals: Kamari Stewart MD, PhD [Staff Provider] -
--- NOTE | 2018-07-14 08:44 | CON ---
DATE: 07/11/2018 REFERRING DOCTOR: Graham Teran MD REASON FOR CONSULTATION: Elevated LFTs. HISTORY OF PRESENT ILLNESS: This is a 67-year-old male with a history of hypertension, hyperlipidemia, oral tongue cancer years ago, alcohol abuse, diabetes, comes in for the past couple of weeks ago, he actually noticed that the urine was dark about 2 months ago, subjective weight loss. No fever or chills. Currently lying in bed comfortable, in no apparent distress. PAST MEDICAL HISTORY: As above. PAST SURGICAL HISTORY: As above. MEDICATIONS: Reviewed. REVIEW OF SYSTEMS: Reviewed and negative apart from HPI. PHYSICAL EXAMINATION: GENERAL: This is a pleasant elderly male, lying in bed comfortably. VITAL SIGNS: Here in the hospital, grossly unremarkable. HEENT: Head, normocephalic, atraumatic. Eyes, pupils equally reactive to light bilaterally. There is profound conjunctival icterus, no pallor. NECK: Supple. Normal range of motion. No lymphadenopathy appreciated. LUNGS: Coarse breath sounds bilaterally. HEART: S1 and S2. Regular rate and rhythm. No murmurs appreciated. ABDOMEN: Soft. Nontender. Bowel sounds present. No rebound. No guarding. RECTAL: Deferred. EXTREMITIES: Pulses present bilaterally. SKIN: Warm, dry, and intact. NEUROLOGIC: Alert, oriented x3. LABORATORY DATA: All labs and relevant radiology have been reviewed. WBC is 5.5, hemoglobin 10.5, hematocrit 30.2, platelet count is within normal limits. within normal limits. INR 1.3. Calcium 10.3, total bili 10.7, AST 137, ALT 86, alk phos 102., is 4.7. U-tox is negative. CAT scan shows questionable 00:14; 00:17; 00:57; 01:11; 01:19 prior MRCP, no obstructing lesion noted. ASSESSMENT AND PLAN: This is a 67-year-old male with elevated liver function tests. I suspect this is more likely secondary to alcohol given his acute history of acute drinking. At this point, the patient can tolerate diet, hepatitis panel is pending. We would consider liver biopsies if no improvement. The other concern is the time he was changed to fenofibrate medicine might be also to blame. We will consider drug abuse as well. Once again, if the patient does not show improvement in 48 hours , we will consider with a biopsy. Thank you for the consult. Kamari Stewart MD/ PhD cc: ____
== END 2018-07-11 18:20 | disposition left against medical advice (07) | DRG 443 ==
LOC: H.ER 08:51 → H.ERHOLD 12:22 → H.MEDSURG1 18:33
DX: R17 Unspecified jaundice (principal); E86.0 Dehydration; F10.10 Alcohol abuse, uncomplicated; Z85.810 Personal history of malignant neoplasm of tongue; E11.9 Type 2 diabetes mellitus without complications; E11.41 Type 2 diabetes mellitus with diabetic mononeuropathy; E78.00 Pure hypercholesterolemia, unspecified; E78.5 Hyperlipidemia, unspecified; I10 Essential (primary) hypertension; K52.9 Noninfective gastroenteritis and colitis, unspecified; Z79.4 Long term (current) use of insulin; Z80.1 Family history of malignant neoplasm of trachea, bronchus and lung; Z87.891 Personal history of nicotine dependence; Z79.84 Long term (current) use of oral hypoglycemic drugs; Z79.899 Other long term (current) drug therapy; R74.0 Nonspecific elevation of levels of transaminase and lactic acid dehydrogenase [LDH]; D53.9 Nutritional anemia, unspecified

== ENCOUNTER 2018-07-28 10:59 | Day surgery (SDC) | payer MEDICARE ==
[2018-07-28 12:12] VITALS: BMI 25.1
[2018-07-28] MEDS ORDERED: Absorbable Gelatin Sponge Size 12-7 ONE (12:44)
[2018-07-28] MEDS ORDERED: Lidocaine 1% Inj (20ml) ONE (12:44)
[2018-07-28] MEDS ORDERED: Midazolam 2 MG/2 ML VIAL ONE (13:42)
--- NOTE | 2018-07-28 14:01 | CP.SDSHP ---
Same Day Surgery H & P - History Proposed Procedure: US guided liver biopsy Pre-Op Diagnosis: Abnormal LFTs - Allergies Allergies: Allergies Penicillins Allergy (Verified 07/28/18 12:12) ITCHING - Physical Exam Vital Signs: Vital Signs 07/28/18 07/28/18 07/28/18 11:54 12:01 13:30 Temperature 97.7 F 97.8 F Pulse Rate 76 76 60 Respiratory 18 18 Rate Blood Pressure 96/61 L 136/80 O2 Sat by Pulse 97 100 Oximetry Mental Status: Alert & Oriented x3 Neuro: WNL Heart: WNL - Impression Impression: Pt with jaundice and abnormal LFTs. Plan liver biopsy. Informed consent obtained. Pt. Evaluated Today:Candidate for Anesthesia & Procedure: Yes (ASA 3 Malampati 3) Short Stay Discharge - Short Stay Discharge Admitting Diagnosis/Reason for Visit: ELEVATED LFT Disposition: HOME/ ROUTINE
--- NOTE | 2018-07-28 14:03 | PCM.SURG1 ---
Surgeon's Initial Post Op Note - Surgeon's Notes Surgeon: Rigoberto Salazar MD Training Director: NONE Type of Anesthesia: IV Sedation Pre-Operative Diagnosis: Abnormal LFTs Operative Findings: US showed dilated hepatic ducts Post-Operative Diagnosis: Abnormal LFTs Operation Performed: US guided liver biopsy Specimen/Specimens Removed: 18 g core x 3 Estimated Blood Loss: EBL {In ML}: 2 Blood Products Given: N/A Drains Used: No Drains Post-Op Condition: Fair Date of Surgery/Procedure: 07/28/18 Time of Surgery/Procedure: 14:00
[2018-07-28] MEDS ORDERED: Oxycodone/Acetaminophen 5/325 mg Tab PO PRN (14:05)
[2018-07-28] MEDS ORDERED: Lactated Ringer's 1,000 ML IV ONE (14:10)
[2018-07-28 15:39] VITALS: PULSE 59
[2018-07-28 17:12] VITALS: BP 116/74; RESP 18; TEMP 98.4; O2SAT 100
--- NOTE | 2018-07-29 13:53 | US ---
PROCEDURE: Date of procedure: 07/28/2018 Procedure: 1. Ultrasound-guided core liver biopsy, CPT 15867 2. Ultrasound guidance for biopsy, [address] Medications: The patient is sedated by the anesthesiologist. HISTORY: Abnormal LFTs TECHNIQUE: Following informed consent and procedure time-out, the patient was placed supine on bed and limited ultrasound showed dilated intrahepatic bile ducts within the left hepatic lobe. After patient abdomen was prepped and draped in the usual sterile fashion and the skin was anesthetized with 2% lidocaine, an 18 gauge core needle was advanced percutaneously under direct ultrasound guidance into the left hepatic lobe. Upon confirmation of needle position, three 18 gauge core specimens were obtained and sent for routine pathology. The biopsy to tract was then embolized with Gelfoam. A post biopsy ultrasound showed no hematoma. A dressing was applied. IMPRESSION: Ultrasound-guided core biopsy left hepatic lobe. There were no immediate complications.
== END 2018-07-28 17:00 | disposition home or self-care (01) ==
LOC: H.OPSURG 10:59
PROVIDERS: ATTEND Internal Medicine Gastroenterology
DX: R79.89 Other specified abnormal findings of blood chemistry (principal); J44.9 Chronic obstructive pulmonary disease, unspecified; E11.9 Type 2 diabetes mellitus without complications; E78.5 Hyperlipidemia, unspecified; I10 Essential (primary) hypertension; G51.0 Bell's palsy; Z85.810 Personal history of malignant neoplasm of tongue; F10.10 Alcohol abuse, uncomplicated
CPT/HCPCS: 47000; 82948; 88307; A4310; J2250; J3010; J7120